=== PATIENT | male | born 1940 | race Caucasian/White ===

== ENCOUNTER → 2019-01-25 | Outpatient (CLI) | payer MEDICARE, OTHER ==
[~2019-01-25] MED LIST: AMLO5 PO; ASPIRIN PO; Atenolol25 MG PO; HYDSUL200 PO; ISOSORBIDE PO; LIPITOR PO; Omeprazole20 M1 PO; WARF4 PO
== END | disposition home or self-care (01) ==
LOC: PLD 10:39 → LAB SHORT 10:39
DX: D48.5 Neoplasm of uncertain behavior of skin (principal)
CPT/HCPCS: 88305

== ENCOUNTER 2019-02-20 08:29 | Day surgery (SDC) | payer MEDICARE, OTHER ==
[~2019-02-20] VITALS: Ht 175.3 cm; Wt 81.5 kg
[~2019-02-20 08:29] MED LIST changes: +ATEN50 PO; +Isosorbide Dini30 MG PO; +LOW DOSE ASPIRI81 M1 PO
== END 2019-02-20 10:21 | disposition home or self-care (01) ==
LOC: ORSCSDS 08:29
PROVIDERS: Internal Medicine Gastroenterology
PROC: 0DB58ZX Excision of Esophagus, Via Natural or Artificial Opening Endoscopic, Diagnostic (ICD-10-PCS; principal; 2019-02-20 10:00)
PROC: 0D758ZZ Dilation of Esophagus, Via Natural or Artificial Opening Endoscopic (ICD-10-PCS; principal; 2019-02-20 10:00)
DX: K22.70 Barrett's esophagus without dysplasia (principal); K21.9 Gastro-esophageal reflux disease without esophagitis; K44.9 Diaphragmatic hernia without obstruction or gangrene; R13.10 Dysphagia, unspecified; K22.5 Diverticulum of esophagus, acquired; I10 Essential (primary) hypertension; I48.91 Unspecified atrial fibrillation; Z79.01 Long term (current) use of anticoagulants; Z79.82 Long term (current) use of aspirin; Z79.899 Other long term (current) drug therapy
CPT/HCPCS: 88305; J2704; J7120

== ENCOUNTER 2024-05-27 19:12 | Inpatient (IN) | payer MEDICARE ==
[~2024-05-27] VITALS: Ht 182.9 cm; Wt 68.7 kg
[~2024-05-27 19:12] MED LIST changes: +FURO20 PO; +ISOSORBIDE MONO60 MG PO; +JARDIANCE10 MG PO; +MULVITA PO; +Percocet 5-3251 EACH PO; +WARF4; -WARF4 PO
[2024-05-27 19:29] LABS: BASOPHILS ABSOLUTE AUTO 0.03 K/mm3 (0.00-0.23); BASOPHILS PERCENT AUTO 0 % (0-2); EOSINOPHILS ABSOLUTE AUTO 0.07 K/mm3 (0.00-0.68); EOSINOPHILS PERCENT AUTO 1 % (0-6); Hematocrit 42.5 % (37.0-53.0); Hemoglobin 15.1 g/dL (13.5-17.5); IMMATURE GRAN ABSOLUTE AUTO 0.03 K/mm3 (0.00-0.10); IMMATURE GRAN PERCENT AUTO 0 % (0-1); LYMPHOCYTES ABSOLUTE AUTO 1.83 K/mm3 (0.84-5.20); LYMPHOCYTES PERCENT AUTO 19 % (21-46); MONOCYTES ABSOLUTE AUTO 1.02 K/mm3 (0.16-1.47); MONOCYTES PERCENT AUTO 11 % (4-13); Mean Corpuscular HGB 34.1 pg (26.0-34.0); Mean Corpuscular HGB Conc 35.5 g/dL (31.5-36.5); Mean Corpuscular Volume 96 fL (80-100); Mean Platelet Volume 8.7 fL (9.1-12.4); NEUTROPHILS ABSOLUTE AUTO 6.65 K/mm3 (1.96-9.15); NEUTROPHILS PERCENT AUTO 69 % (41-73); Platelet Count 200 K/mm3 (150-400); RDW Standard Deviation 49.3 fL (35.1-46.3); Red Blood Cell Count 4.43 M/mm3 (4.30-5.90); White Blood Cell Count 9.63 K/mm3 (4.00-11.30)
[2024-05-27 19:46] LABS: Alanine Aminotransfer (ALT/SGP 15 U/L (12-78); Albumin, Blood 3.9 g/dL (3.4-5.0); Albumin/Globulin Ratio 1.3 (0.8-1.8); Alk Phos 90 U/L (50-136); Anion Gap 9 mmol/L (3-11); Aspartate Aminotrans (AST/SGOT 44 U/L (12-37); Bilirubin, Total 1.5 mg/dL (0.1-1.0); Blood Urea Nitrogen 17 mg/dL (8-24); Bun/Creatinine Ratio 20.7 (12.0-20.0); CO2, Blood 30 mmol/L (21-32); Calcium, Blood 8.8 mg/dL (8.5-10.1); Chloride, Blood 96 mmol/L (98-108); Creatinine, Blood 0.82 mg/dL (0.60-1.20); Ethanol (Alcohol), Blood, Med <3 mg/dL; Glomerular Filtration Rate 86 (60-); Glucose, Blood 116 mg/dL (70-99); Potassium, Blood 4.2 mmol/L (3.5-5.5); Sodium, Blood 131 mmol/L (136-145); Total Protein, Blood 6.9 g/dL (6.4-8.2)
[2024-05-27 19:47] LABS: International Normalized Ratio 3.17; Prothrombin Time Results 31.1 Sec (9.7-11.5)
[2024-05-27] MEDS ORDERED: levETIRAcetam 1,000 MG in NS 100 ML IV ONE (20:45)
[2024-05-27] MEDS ORDERED: FLU VACC TS2024-25(6MOS UP)/PF 45 MCG/0.5 ML SYRINGE IM ONE (22:30)
[2024-05-27] MEDS ORDERED: Ondansetron HCl 2 MG / ML 2ML Vial IV PRN (22:30)
[2024-05-27] MEDS ORDERED: NS 1,000 ML IV SCH (22:30)
[2024-05-27] MEDS ORDERED: Aspirin 81 MG Chew PO SCH (23:00)
[2024-05-27 23:06] VITALS: BP 151/91
[2024-05-28] MEDS ORDERED: Aspirin 81 MG Chew PT SCH (01:02)
--- NOTE | 2024-05-28 05:06 | NUR ---
SHIFT SUMMARY NOC PT A/O TO SELF AND FAMILY. HAS APHASIA FROM SUSPECTED CVA YESTERDAY AT [facility] WHERE PT HAD UNWITNESSED FALL AND WAS FOUND UNRESPONSIVE. PT IS UNABLE TO COMPREHEND DIRECTIONS AND JUST REPLIES I DO NOT KNOW TO MOST QUERIES. PT HAS R FACIAL DROOP NOTED ALONG WITH SLURRED SPEECH. PT STRENGTH IS SLIGHTLY WEAKER ON R THAN L SIDE, BUT STRENGTH IS CLOSE BILATERALLY. WHEN PERFORMING ADMIT ASSESSMENT PT FAMILY REPORTS PT HAS DYSPHAGIA BASELINE AND HAS PROBLEMS TAKING MEDICATIONS WHOLE WITH WATER AND MOST MEALS ARE TAKEN PUREED. BEDSIDE SWALLOW EVALUATION ATTEMPTED AND PT WAS ABLE TO SIP 30 ML OF WATER W/O ISSUE AND TAKE ASPIRIN CRUSHED IN APPLESAUCE WITH SLIGHT COUGH AFTER TAKING. PT REMAINS NPO UNTIL ST CAN EVALUATE PT THIS MORNING. PT HAS NS INFUSING @ 75 ML/HR X 1 BAG. PT HAD INTIAL TROPONIN OF 165 WITH SECOND TREDING DOWN 163, AND THIRD PENDING RESULTS. PT ON TELE AFIB IN 80'S. PT CURRENTLY RESTING WITH BED ALARM ON, BED IN LOWEST POSITION, AND CALL LIGHT WITHIN REACH.
[2024-05-28 05:31] VITALS: BP 151/92
[2024-05-28 07:55] VITALS: BP 152/98
[2024-05-28 08:47] LABS: BASOPHILS ABSOLUTE AUTO 0.02 K/mm3 (0.00-0.23); BASOPHILS PERCENT AUTO 0 % (0-2); EOSINOPHILS ABSOLUTE AUTO 0.01 K/mm3 (0.00-0.68); EOSINOPHILS PERCENT AUTO 0 % (0-6); Hematocrit 40.6 % (37.0-53.0); Hemoglobin 13.9 g/dL (13.5-17.5); IMMATURE GRAN ABSOLUTE AUTO 0.03 K/mm3 (0.00-0.10); IMMATURE GRAN PERCENT AUTO 0 % (0-1); LYMPHOCYTES ABSOLUTE AUTO 1.28 K/mm3 (0.84-5.20); LYMPHOCYTES PERCENT AUTO 13 % (21-46); MONOCYTES ABSOLUTE AUTO 0.89 K/mm3 (0.16-1.47); MONOCYTES PERCENT AUTO 9 % (4-13); Mean Corpuscular HGB 32.9 pg (26.0-34.0); Mean Corpuscular HGB Conc 34.2 g/dL (31.5-36.5); Mean Corpuscular Volume 96 fL (80-100); Mean Platelet Volume 9.2 fL (9.1-12.4); NEUTROPHILS ABSOLUTE AUTO 7.68 K/mm3 (1.96-9.15); NEUTROPHILS PERCENT AUTO 78 % (41-73); Platelet Count 183 K/mm3 (150-400); RDW Standard Deviation 49.1 fL (35.1-46.3); Red Blood Cell Count 4.22 M/mm3 (4.30-5.90); White Blood Cell Count 9.91 K/mm3 (4.00-11.30)
[2024-05-28 09:00] LABS: Albumin, Blood 3.4 g/dL (3.4-5.0); Albumin/Globulin Ratio 1.2 (0.8-1.8); Bilirubin, Total 1.9 mg/dL (0.1-1.0); Bun/Creatinine Ratio 24.2 (12.0-20.0); Calcium, Blood 8.5 mg/dL (8.5-10.1); Creatinine, Blood 0.62 mg/dL (0.60-1.20); Globulin, Blood 2.9 g/dL (2.2-4.0); Potassium, Blood 4.2 mmol/L (3.5-5.5); Total Protein, Blood 6.3 g/dL (6.4-8.2)
[2024-05-28 09:09] LABS: International Normalized Ratio 3.49
--- NOTE | 2024-05-28 09:56 | NUR ---
0950- NOTIFIED MD RINALDI OF PT'S CRITICAL [id number]. SAID DC CHECKING TROPONIN LEVELS.
[2024-05-28 10:52] LABS: Source, Urine Clean Catch
[2024-05-28 11:10] LABS: Appearance, Urine Clear (Clear); Bilirubin, Urine Neg (Neg); Blood, Urine Neg (Neg); Color, Urine Yellow (P-Yellow); Glucose Qualitative, Urine Neg (Neg); Ketones, Urine Neg (Neg); Leukocyte Esterase, Urine Neg (Neg); Nitrite, Urine Neg (Neg); Protein, Urine 2+ (Neg); Specific Gravity, Urine 1.005 (1.003-1.022); Urobilinogen, Urine NORM (Normal)
[2024-05-28 11:25] LABS: U Amphetamine Screen Not Detected; U Barbituate Screen Not Detected; U Benzodiazapine Screen DETECTED; U Buprenorphine Screen Not Detected; U Cannabinoids Screen Not Detected; U Cocaine Screen Not Detected; U Methadone Screen Not Detected; U Methamphetamine Screen Not Detected; U Opiates Screen Not Detected; U Oxycodone Screen DETECTED; U Phencyclidine Screen Not Detected
[2024-05-28 11:42] LABS: Bacteria Not Seen /hpf; Red Blood Cells, Urine Not Seen /hpf (0-2); Squamous Epithelial Cells Not Seen /hpf (Few); White Blood Cells, Urine 0-2 /hpf (0-5)
[2024-05-28 12:55] VITALS: BP 154/94
--- NOTE | 2024-05-28 16:26 | NUR ---
7760- NOTIFIED MD RINALDI THAT PT FAILED STEVE SWALLOW EVAL. PT WOULD LIKE TO EAT PUREED DIET AND DECLINES A FEEDING TUBE IN PAST HX DESPITE RECOMMENDATION. PT/FAMILY INFORMED OF CODE STATUS. GENTRY TO COME TO BEDSIDE AND DISCUSS DNR STATUS FOR PT DUE TO PT WANTING TO EAT DESPITE NEEDING TO BE NIL PER OS FOR FAILURE OF SWALLOW STUDY. SAID OKAY TO PLACE ORDER FOR PUREED FOODS/THICKENED LIQUIDS.
[2024-05-28 16:34] VITALS: BP 174/113
--- NOTE | 2024-05-28 18:28 | NUR ---
SUMMARY- AAOX1-2. PT MAY HAVE BEEN UNABLE TO ANSWER ORIENTATION Q'S DUE TO LACK OF HEARING AIDS. NO COMPLAINTS OF PAIN. X1 ASSIST. PT HAS MINIMAL RIGHT SIDE EFFECT (FACIAL DROOP WHEN SMILING) / R ARM WEAKNESS NOTED.
[2024-05-28 20:08] VITALS: BP 151/115
[2024-05-29 00:49] VITALS: BP 136/85
[2024-05-29 03:54] VITALS: BP 154/88
[2024-05-29 05:17] LABS: International Normalized Ratio 2.72
--- NOTE | 2024-05-29 06:00 | NUR ---
SHIFT SUMMARY NOC PT A/O TO SELF. APHASIA AND DOES NOT FOLLOW DIRECTIONS AT ALL. PT HAS BEEN IMPULSIVE T/O SHIFT GETTING OOB, BUT BED ALARM IN PLACE FOR SAFETY. PT URINATING ON OWN BUT REQUIRING CUES AT TIME TO ENCOURAGE THEM TO GO. PT ON TELE AFIB IN 90'S-100'S. PT CURRENTLY RESTING WITH BED IN LOWEST POSITION, AND CALL LIGHT WITHIN REACH.
[2024-05-29 07:42] VITALS: BP 160/87
[2024-05-29 08:06] LABS: Bun/Creatinine Ratio 22.6 (12.0-20.0); Calcium, Blood 8.7 mg/dL (8.5-10.1); Creatinine, Blood 0.58 mg/dL (0.60-1.20); Potassium, Blood 3.8 mmol/L (3.5-5.5)
[2024-05-29] MEDS ORDERED: Omeprazole 20 MG CapCR PO SCH (09:00)
[2024-05-29] MEDS ORDERED: Multivitamins 1 Tab PO SCH (09:00)
[2024-05-29] MEDS ORDERED: Hydroxychloroquine Sulfate 200 MG Tab PO SCH (09:00)
[2024-05-29] MEDS ORDERED: Aspirin 81 MG TabEC PO SCH (09:00)
[2024-05-29] MEDS ORDERED: Isosorbide Mononitrate 60 MG TABCR PO SCH (09:00)
[2024-05-29] MEDS ORDERED: AmLODIPine Besylate 5 MG Tab PO SCH (09:00)
[2024-05-29 11:42] VITALS: BP 135/81
--- NOTE | 2024-05-29 13:39 | NUR ---
Spiritual care visit conducted. The patient is lying in bed and alert, his spouse, Eunice, is bedside. They explain the events that led to his admission to the hospital. They tell the concerns they have about navigating the patient's D/C, as they have a couple of housing options but want to remain close to the [employer] they attend in [place]. The patient is Voodoo and Eunice is non-Voodoo but attends his zoroastrianism for his benefit. I provided therapeutic listening and prayer. The patient is moved to tears by the prayer and states that the prayer was "exactly what he needed." I will continue to remain available to patient and family.
--- NOTE | 2024-05-29 17:13 | NUR ---
1530-DC PT LEFT IN STABLE CONDITION WITH FAMILY (/FRIEND) WITH ALL BELONGINGS.
== END 2024-05-29 15:50 | disposition home health service (06) | DRG 93 ==
LOC: ER 19:12 → MEDS 21:28
PROVIDERS: Student in an Organized Health Care Education/Training Program; ADMIT Internal Medicine
DX: R47.81 Slurred speech (principal); R29.810 Facial weakness; I50.9 Heart failure, unspecified; I48.91 Unspecified atrial fibrillation; R29.709 NIHSS score 9; I11.0 Hypertensive heart disease with heart failure; R79.89 Other specified abnormal findings of blood chemistry; R13.10 Dysphagia, unspecified; Z79.01 Long term (current) use of anticoagulants; Z88.8 Allergy status to other drugs, medicaments and biological substances; Z79.891 Long term (current) use of opiate analgesic; Z79.899 Other long term (current) drug therapy; Z79.82 Long term (current) use of aspirin; Z98.1 Arthrodesis status; Z87.19 Personal history of other diseases of the digestive system; Z98.41 Cataract extraction status, right eye; Z98.42 Cataract extraction status, left eye
CPT/HCPCS: 36415; 70450; 70496; 70498; 70551; 80048; 80053; 80320; 81001; 82947; 84484; 85025; 85610; 85730; 92610; 93005; 93010; 93306; 97116; 97161; 99285-25; A9270; G0378; J1953; J7030; Q9967

== ENCOUNTER 2025-02-19 14:06 | Inpatient (IN) | payer MEDICARE ==
[~2025-02-19] VITALS: Ht 172.7 cm; Wt 68.2 kg
[2025-02-19 14:34] LABS: BASOPHILS ABSOLUTE AUTO 0.03 K/mm3 (0.00-0.23); BASOPHILS PERCENT AUTO 1 % (0-2); EOSINOPHILS ABSOLUTE AUTO 0.01 K/mm3 (0.00-0.68); EOSINOPHILS PERCENT AUTO 0 % (0-6); Hematocrit 35.4 % (37.0-53.0); Hemoglobin 11.6 g/dL (13.5-17.5); IMMATURE GRAN ABSOLUTE AUTO 0.02 K/mm3 (0.00-0.10); IMMATURE GRAN PERCENT AUTO 0 % (0-1); LYMPHOCYTES ABSOLUTE AUTO 0.99 K/mm3 (0.84-5.20); LYMPHOCYTES PERCENT AUTO 16 % (21-46); MONOCYTES ABSOLUTE AUTO 0.72 K/mm3 (0.16-1.47); MONOCYTES PERCENT AUTO 12 % (4-13); Mean Corpuscular HGB Conc 32.8 g/dL (31.5-36.5); Mean Corpuscular Volume 95 fL (80-100); NEUTROPHILS ABSOLUTE AUTO 4.48 K/mm3 (1.96-9.15); NEUTROPHILS PERCENT AUTO 72 % (41-73); NRBC ABSOLUTE 0.00 K/mm3 (0.00-0.02); NRBC Auto 0.0 /100 WBC (0.0-0.2); Platelet Count 218 K/mm3 (150-400); RDW Coefficient Variation 13.9 % (11.7-14.2); RDW Standard Deviation 48.7 fL (35.1-46.3)
[2025-02-19 15:02] LABS: Alanine Aminotransfer (ALT/SGP 24.0 U/L (12-78); Albumin, Blood 3.7 g/dL (3.4-5.0); Albumin/Globulin Ratio 1.1 (0.8-1.8); Anion Gap 11.0 mmol/L (3-11); Aspartate Aminotrans (AST/SGOT 49.0 U/L (12-37); Bilirubin, Total 1.7 mg/dL (0.1-1.0); Blood Urea Nitrogen 23.0 mg/dL (8-24); CO2, Blood 26.0 mmol/L (21-32); Calcium, Blood 8.8 mg/dL (8.5-10.1); Chloride, Blood 97.0 mmol/L (98-108); Creatinine, Blood 0.63 mg/dL (0.60-1.20); Globulin, Blood 3.5 g/dL (2.2-4.0); Glucose, Blood 98.0 mg/dL (70-99); Potassium, Blood 4.0 mmol/L (3.5-5.5); Sodium, Blood 130.0 mmol/L (136-145); Total Protein, Blood 7.2 g/dL (6.4-8.2)
[2025-02-19] MEDS ORDERED: CefTRIAXone Sodium 1,000 MG in NS 100 ML IV ONE (15:05)
[2025-02-19 15:13] LABS: Influenza A, PCR NEGATIVE (NEGATIVE); Influenza B, PCR NEGATIVE (NEGATIVE); Resp Syncytial Virus, PCR NEGATIVE (NEGATIVE); SARS-Cov-2 (COVID-19) PCR, MMC NEGATIVE (NEGATIVE)
[2025-02-19] MEDS ORDERED: Ampicillin Sod/Sulbactam Sod 3 GM in NS 100 ML IV ONE (15:30)
[2025-02-19] MEDS ORDERED: Ondansetron HCl 2 MG / ML 2ML Vial IV PRN (18:30)
[2025-02-19] MEDS ORDERED: NS 1,000 ML IV SCH (18:30)
[2025-02-19] MEDS ORDERED: FLU VACC TS2025(65UP)/MF59C/PF 45 MCG/0.5 ML SYRINGE IM SCH (18:40)
[2025-02-19] MEDS ORDERED: LISI20 PO (18:45)
[2025-02-19] MEDS ORDERED: WARF1 PO (18:45)
[2025-02-19 19:14] LABS: Prothrombin Time Results 26.8 Sec (9.7-11.5)
[2025-02-19 21:18] VITALS: BP 174/106
--- NOTE | 2025-02-19 22:07 | NUR ---
ADMIT NOTE 84 YR OLD MALE ADMITTED TO FLOOR FROM THE ED WITH DX OF ASPIRATIN PNEUMONIA. HX DYSPHAGIA, HTN, GERD, CHF, TREATMENT FOR DVT. A/O X 4. NPO X MEDS ORDERED. LUNG SOUNDS DIMINISHED PER AUSCULTAION. UP WITH ASSIST NEEDED. ORIENTED TO USE OF CALL LIGHT AND BED CONTROL. IVF INFUSING AT 50 ML/HR ANS WILL RECEIVE IV ABX ORDERED -SEEE [facility] FOR DETAILS. RSETING QUIETLY AT THIS TIME. CALL LIGHT IN REACH, RAILS UP X 2 AND BED IN LOW POSITION FOR SAFETY.
[2025-02-19] MEDS ORDERED: HydrALAZINE HCl 20 MG / ML 1ML Vial IV PRN (22:20)
--- NOTE | 2025-02-19 22:22 | NUR ---
BP EEVATED (174/106), NOTIFIED AND ANTIHYPERTENSIVE MED ORDERED - SEE MAR FOR DETAILS
[2025-02-20] MEDS ORDERED: Ampicillin Sod/Sulbactam Sod 3 GM in NS 100 ML IV SCH
[2025-02-20 00:05] VITALS: BP 174/104
[2025-02-20 03:43] VITALS: BP 160/92
--- NOTE | 2025-02-20 03:48 | NUR ---
MARKETING FINANCIAL ANALYST SUMMARY PT ADMITTED EARLIER FROM THE ED WITH DX OF ASPIRATION PNEUMONIA. TERRAZZO GRINDER REPORTED PT HAD WORSENING DYSPHAGIA AND HAD APPARENTLY ASPIRATED. HX INCLUDED DYSPHAGIA, GERD, AFIB BARRETTS ESOPHAGUS, CHF AND HTN. PT A/O X 4. COOPERATIVE WITH CARE. NPO. IVF OF NS INFUSING AT 50 ML/HR AND IV ANTIBIOTICS Q 6 HRS, SEE MAR FOR DETAILS. VOIDING ADEQUATE AMTS. HOB ELEVATED. INTERMITTENT WAKEFULNESS DUE TO FEELING OF SOB. BP ELEVATED, OTHERWISE, VSS. NOTE BP AT 174/106 WHEN ARRIVED ON FLOOR, NOTIFIED AND ANTIHYPERTENSIVE MED GIVEN - SEE MAR FOR DETAILS. O2 SATS REMAIN INTHE 90'S. CALL LIGHT IN REACH, RAILS UP X 2 AND BED IN LOW POSITION FOR SAFETY. WILL CONT TO MONITOR, PROVIDE SUPPORT.
[2025-02-20 05:46] LABS: Hematocrit 36.0 % (37.0-53.0); Hemoglobin 12.0 g/dL (13.5-17.5); Mean Corpuscular HGB Conc 33.3 g/dL (31.5-36.5); Mean Corpuscular Volume 92 fL (80-100); NRBC ABSOLUTE 0.00 K/mm3 (0.00-0.02); NRBC Auto 0.0 /100 WBC (0.0-0.2); Platelet Count 215 K/mm3 (150-400); RDW Coefficient Variation 13.9 % (11.7-14.2); RDW Standard Deviation 47.6 fL (35.1-46.3)
[2025-02-20 06:02] LABS: Prothrombin Time Results 27.9 Sec (9.7-11.5)
[2025-02-20 07:07] LABS: Albumin, Blood 3.7 g/dL (3.4-5.0); Anion Gap 12 mmol/L (3-11); Blood Urea Nitrogen 18 mg/dL (8-24); CO2, Blood 24 mmol/L (21-32); Calcium, Blood 9.0 mg/dL (8.5-10.1); Chloride, Blood 98 mmol/L (98-108); Creatinine, Blood 0.58 mg/dL (0.60-1.20); Glucose, Blood 69 mg/dL (70-99); Magnesium, Blood 1.7 mg/dL (1.6-2.4); Phosphorus, Blood 2.9 mg/dL (2.5-4.9); Potassium, Blood 3.6 mmol/L (3.5-5.5); Sodium, Blood 130 mmol/L (136-145)
[2025-02-20 07:17] VITALS: BP 166/96
[2025-02-20] MEDS ORDERED: JANTOVEN4 M2 PO (12:23)
[2025-02-20 15:58] VITALS: BP 174/102
--- NOTE | 2025-02-20 16:05 | NUR ---
PALLIATIVE CARE VISIT: MET WITH PT AND HIS "KODY" IN THE ROOM. PT IS ABLE TO HAVE MEANINGFUL DISCUSSION AND IS ABLE TO MAKE DECISIONS. EDUCATED PT AND ON PEG TUBE-RISKS VS BENEFITS. ALSO EDUCATED PT ON OPTIONS ON RISKS OF CONITNUEING TO EAT AND DRINK BY MOUTH. ANSWERED QUESTIONS AND CLARIFIED ANY MISUNDERSTANDINGS. PT WAS ABLE TO V/U AND REPEAT BACK RISKS AND BENEFITS. PT DISCUSSED WITH HIS AND ULTIMATELY CAME TO DECISION TO CONTINUE TO EAT FOOD FOR COMFORT. PT STATES HE DOES NOT CHOKE WHEN HE EATS PUREED SOUPS. HE CHOKED ON THANKSGIVING BECAUSE HE SAID HE ATE FOODS HE NORMALLY DOES NOT EAT AND DID NOT TAKE ANY PRECAUTIONS TO PREPARE INTO A TEXTURE HE CAN EAT. DISCUSSED WITH PT WHAT TEXTURE HE CAN TOLERATE. HE STATES HE CAN TOLERATE PUREED SOUPS AND THIN LIQUIDS. EDUCATED PT ON ASPIRATION PRECAUTIONS AND MED DELIVERY PRECAUTIONS. DISCUSSED HOSPICE SERVICES AND PT DECLINED HOSPICE REFERRAL. DISCUSSED WITH DR. QUIROZ, PT DESIRE TO CONTINUE EATING AND DRINKING BY MOUTH. DR. QUIROZ MET WITH PT AND ALSO SPOKE TO NON DESTRUCTIVE EVALUATION SPECIALIST. WE DISCUSSED APPROPRIATE DIET ORDER AND SAFETY PRECAUTIONS. DR. QUIROZ REQUESTED ORDERS TO BE PLACED. PT PLACED ON FULL LIQUID DIET. OK FOR ENSURES WITH EACH MEAL. PT TO SIT UP 90 DEGREES FOR MEALS. PT TO HAVE MEDICATIONS CRUSHED IN APPLESAUCE.
[2025-02-20] MEDS ORDERED: OxyCODONE 5 mg/Acetamin 325 mg TABLET PO PRN (16:10)
[2025-02-20 17:47] VITALS: BP 120/72
--- NOTE | 2025-02-20 18:11 | NUR ---
SUMMARY PT OPTED TO RESUME MODIFIED DIET PER PALLIATIVE CARE NURSE. STARTED ON FULL LIQUID DIET THIS EVENING. DR. GARCIA CONSULTED FOR HEMOTHORAX. ULTRASOUND COMPLETED BY DR. GARCIA, REVIWED LABS. COUMADIN ON HOLD DUE TO PENDING DRAINAGE OF FLUID WITH PULMONLOGY BASED ON INR LEVELS. POSSIBLY WITHIN 1-2 DAYS. PT UP SBA. AT BEDSIDE DURING PALLIATIVE CONSULT.
[2025-02-20 20:07] VITALS: BP 147/91
[2025-02-21 03:59] VITALS: BP 146/87
[2025-02-21 06:11] LABS: Prothrombin Time Results 43.7 Sec (9.7-11.5)
--- NOTE | 2025-02-21 07:57 | NUR ---
SHIFT SUMMARY; SLEPT IN LONG ITERVALS, UP TO BR, TOLERATED WELL, REVIEWED MED LIST AND PUT AN ORDER FOR TO UPDATE. INR CRITICAL THIS MORNING, 4.44 DISCUSSED WITH DAY SHIFT RN.
[2025-02-21 08:49] VITALS: BP 150/81
[2025-02-21] MEDS ORDERED: Human Prothrombin Complx(Pcc) 2,000 UNIT in Water For Injection,Sterile 80 ML IV ONE (10:55)
[2025-02-21 13:07] VITALS: BP 152/89
[2025-02-21 13:09] VITALS: BP 152/89
[2025-02-21 14:34] LABS: Automated BF RBC Count 1.372 M/mm3 (0-0); Automated BF WBC Count 0.844 K/mm3 (0-999)
[2025-02-21] MEDS ORDERED: NS 250 ML IV PRN (14:35)
[2025-02-21 14:54] LABS: Albumin, Body Fluid 1.8 g/dL; Glucose, Body Fluid 117 mg/dL; Lactate Dehydrogenase, Body Fl 213 U/L
[2025-02-21 15:23] LABS: Lymphocytes, Fluid 9.0 % (0.0-18.0); Monocytes/Mononuclear, Fluid 53.0 % (0.0-50.0); Neutrophils, Fluid 38.0 % (0.0-25.0); Total Cell Count, Body Fluid 100
[2025-02-21 15:24] LABS: Color, Body Fluid Red (None-Yellow)
--- NOTE | 2025-02-21 19:38 | NUR ---
DR. GARCIA COMPLETED THORACENTESIS AT BEDSIDE THIS AFTERNOON. 1200 ML OF BLOODY FLUID REMOVED FROM LEFT LUNG BASE AND SAMPLES SENT TO LAB. PLAN PER DR. GARCIA IS TO DO ANOTHER THORACENTESIS TOMORROW, LOW DOSE VITAMIN K WAS GIVEN THIS EVENING AND WARFARIN DC'D. BANDAID SITE TO LEFT LUNG BASE REMAINS C/D/I. NO SIGNS OF BLEEDING NOTED AFTER PROCEUDRE. PT PLACED ON CONTINUOUS PULSE OX MONITORING AND SATTING WNL ON ROOM AIR. PT REPORTS MILD PAIN TO "LUNGS"WITH DEEP INSPURATION, DENIES NEED FOR PRN PAIN MEDICATION. IV ANTIBIOTICS ADMINISTERED ORDERED. PT DOES NOT SEEM TO BE TOLERATING THICKENED LIQUIDS, AFTER DINNER HIS VOICE/UPPER AIRWAY SOUNDED VERY MOIST/CRACKLY. PALLIATIVE CARE WAS CONSULTED INITIALLY TO DISCUSS PEG TUBE AND PT HAD DECLINED AND OPTED TO RESUME MODIFIED FULL LIQUID DIET THAT HE HAD BEEN ON AT HOME. THIS MAY NEED TO BE RE-ADDRESSED TOMORROW.
[2025-02-21 20:21] VITALS: BP 157/83
[2025-02-22 02:59] VITALS: BP 151/90
--- NOTE | 2025-02-22 04:39 | NUR ---
SHIFT SUMMARY PATIENT A/OX4, ABLE TO MAKE NEEDS KNOWN. PLEASANT AND COOPERATIVE WITH CARE. PATIENT ABLE TO SLEEP APPROX 4 HOURS THIS SHIFT. NEW IV PLACED TO VARSHA. CONTINUOUS PULSE OX IN PLACE, SPO2 WNL ON ROOM AIR. AMBULATING TO THE BATHROOM SBA. BLOOD PRESSURE REMAINS ELEVATED SBP 150s. IV ABX INFUSED PER MAY. NO OTHER CONCERNS AT THIS TIME, WILL CONTINUE TO MONITOR.
[2025-02-22 06:05] LABS: BASOPHILS ABSOLUTE AUTO 0.02 K/mm3 (0.00-0.23); BASOPHILS PERCENT AUTO 0 % (0-2); EOSINOPHILS ABSOLUTE AUTO 0.00 K/mm3 (0.00-0.68); EOSINOPHILS PERCENT AUTO 0 % (0-6); Hematocrit 38.2 % (37.0-53.0); Hemoglobin 12.5 g/dL (13.5-17.5); IMMATURE GRAN ABSOLUTE AUTO 0.02 K/mm3 (0.00-0.10); IMMATURE GRAN PERCENT AUTO 0 % (0-1); LYMPHOCYTES ABSOLUTE AUTO 0.67 K/mm3 (0.84-5.20); LYMPHOCYTES PERCENT AUTO 7 % (21-46); MONOCYTES ABSOLUTE AUTO 1.08 K/mm3 (0.16-1.47); MONOCYTES PERCENT AUTO 11 % (4-13); Mean Corpuscular HGB Conc 32.7 g/dL (31.5-36.5); Mean Corpuscular Volume 94 fL (80-100); NEUTROPHILS ABSOLUTE AUTO 8.24 K/mm3 (1.96-9.15); NEUTROPHILS PERCENT AUTO 82 % (41-73); NRBC ABSOLUTE 0.00 K/mm3 (0.00-0.02); NRBC Auto 0.0 /100 WBC (0.0-0.2); Platelet Count 208 K/mm3 (150-400); RDW Coefficient Variation 13.9 % (11.7-14.2); RDW Standard Deviation 48.1 fL (35.1-46.3)
[2025-02-22 06:30] LABS: Anion Gap 10.0 mmol/L (3-11); Blood Urea Nitrogen 25.0 mg/dL (8-24); CO2, Blood 27.0 mmol/L (21-32); Calcium, Blood 8.8 mg/dL (8.5-10.1); Chloride, Blood 103.0 mmol/L (98-108); Creatinine, Blood 0.72 mg/dL (0.60-1.20); Glucose, Blood 97.0 mg/dL (70-99); Potassium, Blood 3.6 mmol/L (3.5-5.5); Sodium, Blood 136.0 mmol/L (136-145)
[2025-02-22 07:13] VITALS: BP 156/96
[2025-02-22 09:02] LABS: Prothrombin Time Results 17.5 Sec (9.7-11.5)
--- NOTE | 2025-02-22 10:14 | NUR ---
AM NOTE: PATIENT ALERT AND ORIENTED X4. UP WITH SBA. MOVING ALL EXTREMITIES. PERRLA, WEARING GLASSES. DENIES PAIN THIS MORNING. SITTING ON EDGE OF BED FOR BREAKFAST. ON ROOM AIR, DENIES SOB AT THIS TIME. LEFT LOWER BACK THORACENTESIS SITE WITH BANDAID IN PLACE. HR 80'S. DENIES CHEST PAIN/PRESSURE/PALPITATIONS. REFUSED SCD'S. BOWEL TONES PRESENT AND TOLERATING MILDLY THICK FULL LIQUID DIET AT THIS TIME. SUCTION AT BEDSIDE. UP TO USE BATHROOM. DENIES ISSUES VOIDING. SKIN PALE WITH SCATTERED BRUISING AND BURN TO LEFT THUMB WITH BANDAID IN PLACE. DR. TRIPLETT IN TO SEE PATIENT AT THIS TIME. THIS RN REPORTED OFF TO LIVIA FITZGERALD AT 1000.
[2025-02-22] MEDS ORDERED: AMOCLA875 PO (13:42)
--- NOTE | 2025-02-22 14:20 | NUR ---
PT DISCHARGED PRIOR TO DC THORACENTESIS WAS COMPLETED BY DR. BLOCK. 850ML OF BLOODY LIQUID REMOVED. BANDAGE IN PLACE OVER INSERTION SITE, NO BLEEDING OR HEMATOMA NOTED PRIOR TO DC. PT DISCHARGED ON NEW MEDICATION AND MEDS WERE FAXED TO [facility]. IVS REMOVED & INTACT. NO OTHER ACUTE CHANGES IN ASSESSMENT PRIOR TO DC. PT DENIED FURTHER NEED FOR INSTRUCTION PRIOR TO DEPARTURE.
== END 2025-02-22 14:23 | disposition home or self-care (01) | DRG 177 ==
LOC: ER 14:06 → MEDS 14:07
PROVIDERS: Emergency Medicine; Family Medicine; Student in an Organized Health Care Education/Training Program; ADMIT Internal Medicine
PROC: 3E03329 Introduction of Other Anti-infective into Peripheral Vein, Percutaneous Approach (ICD-10-PCS; 2025-02-20)
PROC: 0W9B3ZZ Drainage of Left Pleural Cavity, Percutaneous Approach (ICD-10-PCS; principal; 2025-02-21)
DX: J69.0 Pneumonitis due to inhalation of food and vomit (principal); S27.1XXA Traumatic hemothorax, initial encounter; I50.32 Chronic diastolic (congestive) heart failure; J91.8 Pleural effusion in other conditions classified elsewhere; S22.42XA Multiple fractures of ribs, left side, initial encounter for closed fracture; K21.9 Gastro-esophageal reflux disease without esophagitis; I45.10 Unspecified right bundle-branch block; R00.0 Tachycardia, unspecified; Z66 Do not resuscitate; G89.29 Other chronic pain; I11.0 Hypertensive heart disease with heart failure; I48.0 Paroxysmal atrial fibrillation; I35.0 Nonrheumatic aortic (valve) stenosis; I20.89 Other forms of angina pectoris; R79.1 Abnormal coagulation profile; Z98.42 Cataract extraction status, left eye; Z98.41 Cataract extraction status, right eye; Z98.890 Other specified postprocedural states; Z79.82 Long term (current) use of aspirin; Z79.899 Other long term (current) drug therapy; Z88.1 Allergy status to other antibiotic agents; W18.30XA Fall on same level, unspecified, initial encounter
CPT/HCPCS: 36415; 71045; 71046; 71250; 80048; 80053; 80069; 82042; 82945; 82947; 83605; 83615; 83735; 83880; 84145; 84157; 84484; 85025; 85027; 85610; 87040; 87070; 87075; 87205; 87637; 88108; 88305; 89051; 92610; 93005; 93010; 96365; 96366; 96375; 96376; 99285-25; A9270; C1729; G0378; J0295; J0360; J7030; J7050; J7168